=== PATIENT | male | born 1990 | race Caucasian/White ===

== ENCOUNTER 2018-01-05 21:28 | Emergency (ER) | payer SELFPAY ==
[2018-01-05 21:48] VITALS: BP 108/66
[2018-01-05 22:29] LABS: Bacteria,Urine 1+ /HPF (Negative); Bilirubin,Urine NEG (Negative); Blood,Urine NEG (Negative); Color,Urine Yellow (Yellow); Mucus,Urine 3+ /HPF; Protein,Urine <15 mg/dL mg/dL (Negative); RBC,Urine < 1.0 /HPF (0.0-6.0); WBC,Urine < 1.0 /HPF (0.0-6.0)
--- NOTE | 2018-01-06 01:19 | Emergency Department Report ---
ED Male HPI - General Chief complaint: Urogenital-Male Stated complaint: ABD PAIN; GROIN PAIN Time Seen by Provider: 01/06/18 01:18 Source: patient Mode of arrival: Ambulatory Limitations: No Limitations - Related Data Allergies Allergy/AdvReac Type Severity Reaction Status Date / Time No Known Allergies Allergy Unverified 01/05/18 21:48 ED Review of Systems ROS: Stated complaint: ABD PAIN; GROIN PAIN Other details as noted in HPI ED Past Medical Hx - Past Medical History Previous Medical History?: Yes Hx Asthma: Yes - Surgical History Past Surgical History?: No - Social History Smoking Status: Current Every Day Smoker Substance Use Type: Alcohol ED Physical Exam - General Limitations: No Limitations General appearance: alert, in no apparent distress - Head Head exam: Present: atraumatic, normocephalic - Eye Eye exam: Present: normal appearance, EOMI. Absent: nystagmus - ENT ENT exam: Present: normal exam, normal orophraynx, mucous membranes moist, normal external ear exam - Neck Neck exam: Present: normal inspection, full ROM - Respiratory Respiratory exam: Present: normal lung sounds bilaterally. Absent: respiratory distress - Cardiovascular Cardiovascular Exam: Present: regular rate, normal rhythm, normal heart sounds. Absent: systolic murmur, diastolic murmur, rubs, gallop - GI/Abdominal GI/Abdominal exam: Present: soft, normal bowel sounds. Absent: distended, tenderness, guarding, rebound, rigid - Rectal Rectal exam: Present: deferred - exam: Present: normal inspection, other (there is no testicular tenderness. There is normal testicular lie bilaterally. There is normal cremasteric reflex bilaterally.). Absent: testicular tenderness, scrotal swelling External exam: Present: normal external exam. Absent: erythema, swelling - Extremities Exam Extremities exam: Present: normal inspection, full ROM, normal capillary refill. Absent: pedal edema, joint swelling, calf tenderness - Back Exam Back exam: Present: normal inspection, full ROM. Absent: tenderness, CVA tenderness (R), paraspinal tenderness, vertebral tenderness - Neurological Exam Neurological exam: Present: alert, oriented X3, CN II-XII intact, normal gait, other (Extraocular movements intact. Tongue midline. No facial droop. Facial sensation intact to light touch in the V1, V2, V3 distribution bilaterally. 5 and 5 strength in 4 extremities.. Sensation is intact to light touch in 4 extremities.). Absent: motor sensory deficit - Psychiatric Psychiatric exam: Present: anxious - Skin Skin exam: Present: warm, dry, intact, normal color. Absent: rash ED Course Vital Signs 01/05/18 21:45 Temperature 98.5 F Pulse Rate 70 Respiratory 18 Rate Blood Pressure 108/66 O2 Sat by Pulse 99 Oximetry ED Medical Decision Making - Lab Data Vital Signs 01/05/18 21:45 Temperature 98.5 F Pulse Rate 70 Respiratory 18 Rate Blood Pressure 108/66 O2 Sat by Pulse 99 Oximetry Lab Results 01/05/18 Range/Units 22:04 Urine Color Yellow (Yellow) Urine Turbidity Clear (Clear) Urine pH 5.0 (5.0-7.0) Ur Specific [place] 1.031 H (1.003-1.030) Urine Protein <15 mg/dl (Negative) mg/dL Urine Glucose (UA) Neg (Negative) mg/dL Urine Ketones Tr (Negative) mg/dL Urine Blood Neg (Negative) Urine Nitrite Neg (Negative) Urine Bilirubin Neg (Negative) Urine Urobilinogen 4.0 (<2.0) mg/dL Ur Leukocyte Esterase Neg (Negative) Urine WBC (Auto) < 1.0 (0.0-6.0) /HPF Urine RBC (Auto) < 1.0 (0.0-6.0) /HPF Urine Bacteria (Auto) 1+ (Negative) /HPF Urine Mucus 3+ /HPF - Medical Decision Making Differential diagnosis, including but not limited to: Urethral stricture, urethral discomfort, conversion disorder, reassurance, general medical evaluation Assessment and plan: 27-year-old male with a complaint of discomfort with ejaculation, sensation of discomfort inside the penis, does not endorse any specific testicular pain or discomfort, no obvious rash noted on exam, also with abdominal discomfort, all present for over a year, has had multiple evaluations at multiple hospitals, patient provided with reassurance, instructed that his condition is very unlikely to be dangerous or life threatening, and he is counseled to follow up with outpatient urology. Return precautions are reviewed. No abdominal tenderness, rebound or guarding, patient noted to playing on a cell phone in no distress. Critical care attestation.: If time is entered above; I have spent that time in minutes in the direct care of this critically ill patient, excluding procedure time. ED Disposition Clinical Impression: General medical exam Disposition: [id number] TO HOME OR SELFCARE Is pt being admited?: No Does the pt Need Aspirin: No Condition: Stable Additional Instructions: Follow-up with the primary care doctor or urologist within the next month. Return to the ER right away with new pain, worsened pain, migration of pain, fevers, chills, lethargy, irritability, projectile vomiting, change in mental status, confusion, inability to tolerate liquid feeds. Referrals: [facility] [Provider Group] - 3-5 Days [facility] [Provider Group] - 3-5 Days
== END 2018-01-06 02:00 | disposition home or self-care (01) ==
LOC: ED 21:28
DX: R10.30 Lower abdominal pain, unspecified (principal); J45.909 Unspecified asthma, uncomplicated; F17.200 Nicotine dependence, unspecified, uncomplicated
CPT/HCPCS: 81001; 99283